=== PATIENT | female | born 1990 | race Caucasian/White ===

== ENCOUNTER 2016-03-13 08:02 | Day surgery (SDC) | payer BC ==
[~2016-03-13] VITALS: Ht 172.7 cm; Wt 92.9 kg
[2016-03-13] MEDS ORDERED: SPRINTEC1 EACH PO (08:27)
[2016-03-13 08:30] VITALS: BP 136/97
[2016-03-13 11:22] VITALS: BP 122/86
[2016-03-13 12:10] VITALS: BP 133/87
== END 2016-03-13 12:25 | disposition home or self-care (01) ==
LOC: SDC 08:02
PROC: 0UBC7ZZ Excision of Cervix, Via Natural or Artificial Opening (ICD-10-PCS; principal; 2016-03-13)
DX: D06.9 Carcinoma in situ of cervix, unspecified (principal)
CPT/HCPCS: 84702; 85025 91; 86850; 86900; 86901; 88305; 88307; J0131; J1100; J1885; J2175; J2250; J2405; J3010

== ENCOUNTER 2017-05-12 03:37 | Emergency (ER) | payer OTHER ==
[~2017-05-12] VITALS: Ht 172.7 cm; Wt 86.7 kg
[~2017-05-12 03:37] MED LIST: SPRINTEC1 EACH PO
[2017-05-12 04:57] LABS: HEMATOCRIT 35.9 % (36.0-46.0); HEMOGLOBIN 11.7 G/DL (11.9-15.5); MCH 28.1 PG (29.0-34.0); MCHC 32.6 G/DL (30.0-36.0); MCV 86.1 FL (83-99); PLATELET COUNT 290 K/uL (156-360); RBC DIS.WIDTH-CV 13.2 % (11.8-14.6); RED BLOOD COUNT 4.17 M/uL (3.80-5.20); WHITE BLOOD COUNT 8.7 K/uL (4.1-10.2)
[2017-05-12 05:11] LABS: CHLORIDE 108 mEq/L (99-109); POTASSIUM 3.6 mEq/L (3.7-5.4); SODIUM 141 mEq/L (136-147)
[2017-05-12 05:12] LABS: GLUCOSE 102 mg/dL (70-99)
[2017-05-12 05:16] LABS: CREATININE 0.8 mg/dL (0.6-1.3); GFR ESTIMATE (CALCULATED) > 59 mL/min/
[2017-05-12 05:17] LABS: UREA NITROGEN (BUN) 10 mg/dL (9-23)
[2017-05-12 06:27] LABS: CREATINE KINASE 54 IU/L (1-294)
[2017-05-12 07:08] VITALS: BP 110/74
[2017-05-12 09:58] LABS: LYME DISEASE SEROLOGY SCREEN NEGATIVE (NEGATIVE)
== END 2017-05-12 07:08 | disposition home or self-care (01) ==
LOC: EME 03:37
PROVIDERS: Physician Assistant
DX: R20.2 Paresthesia of skin (principal); R00.2 Palpitations; R03.0 Elevated blood-pressure reading, without diagnosis of hypertension; Z88.2 Allergy status to sulfonamides
CPT/HCPCS: 80048; 82550; 82607; 84443; 85027; 86618; 93005; 93971; 99281; 99284